=== PATIENT | female | born 1985 | race Caucasian/White ===

== ENCOUNTER → 2016-07-08 | Outpatient (CLI) | payer MEDICAID ==
[~2016-07-08] MED LIST: FERR-74 PO; HYDR-3811 PO; IBUP-793 PO; NAPR250T PO; NORE0.354 PO; NORG1TAB14 PO; OXYC1TAB87 PO; PREN-47 PO
--- NOTE | 2016-07-08 12:35 | Diagnostic Imaging Report ---
INDICATION: Anatomical survey. COMPARISON: None. DISCUSSION: Transabdominal sonographic evaluation of the gravid uterus was performed. Single live intrauterine at 19 weeks 4 days by today's sonographic measurements. EDC by today's ultrasound is 11/28/2016. The cervix measures 4 cm. Biparietal diameter measures 4.42 cm. Head circumference measures 16.42 cm. Abdominal circumference measures 14.11 cm. Femur length measures 3.08 cm. heart rate measures 140 beats per minute. Estimated weight is 295 g. Normal amniotic fluid index measuring 11.7 cm. Placenta is located anteriorly with no placenta previa. presentation is cephalic. Good visualization of the stomach, kidneys, bladder, aorta, brain, three-vessel cord and insertion, four-chamber heart, spine, and extremities. Normal motion is present. No abnormal adnexal mass or fluid. IMPRESSION: 1. Single live intrauterine at 19 weeks 4 days by sonographic measurements. 2. Normal anatomical survey. Dictated by: Dictated on workstation # [id number]
== END ==
LOC: RAD 10:59
PROVIDERS: ATTEND Family Medicine
DX: Z36 Encounter for antenatal screening of mother (principal)
CPT/HCPCS: 76805